=== PATIENT | female | born 1995 ===

== ENCOUNTER 2023-03-11 20:14 | Emergency (ER) | payer OTHER ==
[~2023-03-11] VITALS: Ht 152.4 cm; Wt 72.7 kg
[2023-03-11 22:15] VITALS: BP 129/72
[2023-03-11] MEDS ORDERED: IBUPROFEN 600 MG TABLET PO ONE (22:45)
== END 2023-03-11 22:58 | disposition home or self-care (01) ==
LOC: EMS 20:19
DX: S13.4XXA Sprain of ligaments of cervical spine, initial encounter (principal); V89.2XXA Person injured in unspecified motor-vehicle accident, traffic, initial encounter; Y93.89 Activity, other specified; Y92.89 Other specified places as the place of occurrence of the external cause; Y99.8 Other external cause status
CPT/HCPCS: 72040; 72070; 72100; 99284; Z7502; Z7610